=== PATIENT | female | born 1995 | race Caucasian/White ===

== ENCOUNTER 2017-08-25 13:16 | Emergency (ER) | payer OTHER ==
[~2017-08-25] VITALS: Ht 167.6 cm; Wt 63.6 kg
[2017-08-25] MEDS ORDERED: SPRINTEC 35 MCG1 TAB PO (13:28)
[2017-08-25 15:29] VITALS: BP 113/76; PULSE 98; TEMP 98.2
== END 2017-08-25 15:30 | disposition home or self-care (01) ==
LOC: COL.ER 13:16
DX: S00.33XA Contusion of nose, initial encounter (principal); Z32.02 Encounter for pregnancy test, result negative; W18.30XA Fall on same level, unspecified, initial encounter